=== PATIENT | female | born 1975 | race Two or more races ===

== ENCOUNTER 2017-04-22 22:43 | Inpatient (IN) | payer OTHER ==
[~2017-04-22] VITALS: Ht 167.6 cm; Wt 192.8 kg
[~2017-04-22 22:43] MED LIST: BENADRYL25 MG PO; CATAFLAM50 MG PO; SYNTHROID50 MCG; VASOTEC5 MG; VENTOLIN17 GM
== END 2017-04-24 21:20 | disposition home or self-care (01) | DRG 202 ==
LOC: ER 22:43 → SEC-K 04-23 08:51 → MEDI 04-23 11:16 → MEDJ 04-23 12:00
PROC: 3E0F7GC Introduction of Other Therapeutic Substance into Respiratory Tract, Via Natural or Artificial Opening (ICD-10-PCS; principal; 2017-04-23)
PROC: 4A033R1 Measurement of Arterial Saturation, Peripheral, Percutaneous Approach (ICD-10-PCS; 2017-04-23)
PROC: BW24ZZZ Computerized Tomography (CT Scan) of Chest and Abdomen (ICD-10-PCS; 2017-04-23)
PROC: B246ZZZ Ultrasonography of Right and Left Heart (ICD-10-PCS; 2017-04-23)
PROC: 4A12X4Z Monitoring of Cardiac Electrical Activity, External Approach (ICD-10-PCS; 2017-04-23)
DX: J45.31 Mild persistent asthma with (acute) exacerbation (principal); J98.11 Atelectasis; E66.01 Morbid (severe) obesity due to excess calories; I10 Essential (primary) hypertension; E03.8 Other specified hypothyroidism